=== PATIENT | female | born 1970 | race African-American/Black ===

== ENCOUNTER 2016-09-06 10:25 | Emergency (ER) | payer OTHER ==
[~2016-09-06 10:25] MED LIST: CITALOPRAM HBR20 MG PO; CYCLOBENZAPRINE10 M3 PO; CYMBALTA 20 MG20 MG PO; CYMBALTA 30 MG30 MG PO; CYMBALTA60 MG PO; FLEXERIL10 MG PO; GABAPENTIN300 M2 PO; HYDROCODONE/ACE1 TA1 PO; MACROBID100 MG PO; MOBIC15 MG PO; MOTRIN 600 MG600 MG PO; MOTRIN800 MG PO; NAPROXEN500 MG PO; NEURONTIN300 MG PO; NEXIUM 40MG40 MG PO; PANTOPRAZOLE SO40 MG PO; PERCOCET 325 MG1 TA2 PO; PERCOCET 325 MG1 TAB PO; TRAZODONE HCL100 M1 PO; VICODIN 300 MG-1 TAB PO; ZOFRAN ODT4 MG PO
[2016-09-06 10:28] VITALS: BP 105/72
--- NOTE | 2016-09-06 10:40 | ED HAND/WRIST INJURY COMPLAINT ---
History of Present Illness General Chief Complaint: Hand or Wrist Injury Stated Complaint: L WRIST INJURY Source: patient, old records Exam Limitations: no limitations Vital Signs & Intake/Output Vital Signs & Intake/Output Vital Signs Date Time Temp Pulse Resp B/P B/P Pulse O2 O2 Flow FiO2 Mean Ox Delivery Rate 09/06 1029 97.9 09/06 1028 97.9 115 16 105/72 97 Room Air Allergies Coded Allergies: NO KNOWN ALLERGIES (09/06/16) Reconcile Medications Citalopram Hydrobromide (Citalopram HBr) 20 MG TABLET 1 TAB PO DAILY MENTAL HEALTH (Reported) DULOXETINE HCL (Cymbalta) 60 MG CAPSULE.DR 1 CAP PO DAILY MOOD Duloxetine Hydrochloride (Cymbalta) 20 MG CAPSULE.DR 1 CAP PO BID ANXIETY Gabapentin 300 MG CAPSULE 1 CAP PO TID SEIZURES (Reported) Pantoprazole Sodium 40 MG TABLET.DR 1 TAB PO DAILY GERD (Reported) Trazodone HCl 100 MG TABLET 2 TAB PO QPM SLEEP (Reported) Triage Note: PT TO TRIAGE S/P FALLING LAST NIGHT AND INJURED LT WRIST. STATES SHE WAS DRINKING LAST NIGHT WHEN IT OCCURED. AREA IS WRAPPED FROM HOME, NOTED SWELLING TO AREA. Triage Nurses Notes Reviewed? yes Occurred: yesterday Duration: hour(s):, constant, continues in ED Timing: recent history Injury Environment: street Severity: severe Pain/Injury Location: Left: Wrist. Context: fall Method of Injury: fall Modifying Factors: Improves With: immobilization. Worsens With: jarring, movement. Associated Symptoms: swelling, GCS 15 since, stiffness LMP (ages 10-50): unknown : No Patient currently breastfeeds: No HPI: Evening prior to admission patient admits to alcohol abuse and fell. She complains of left wrist pain and range of motion swelling worse with movement severe constant nonradiating. She denies other injury fever chills nausea vomiting diarrhea abdominal pain chest pain shortness of breath headache dysuria rash bleeding. She is right-hand dominant Past History Travel History Traveled to [place] past 21 day No Medical History Any Pertinent Medical History? see below for history Neurological: NONE EENT: NONE Cardiovascular: "SOMETHING WITH MY HEART" Respiratory: NONE Gastrointestinal: GERD Hepatic: NONE Renal: NONE Musculoskeletal: SPINAL STENOSIS Psychiatric: NONE Endocrine: NONE Blood Disorders: NONE Cancer(s): NONE CEILING INSTALLER/Reproductive: NONE Tetanus Vaccine: 05/10/11 Surgical History Surgical History: tubal ligation Psychosocial History What is your primary language Cameroonian Tobacco Use: Never used Family History Hx Contributory? No Review of Systems Review of Systems Constitutional: Reports: no symptoms. EENTM: Reports: no symptoms. Respiratory: Reports: no symptoms. Cardiovascular: Reports: no symptoms. GI: Reports: no symptoms. Genitourinary: Reports: no symptoms. Musculoskeletal: Reports: see HPI, joint pain, joint swelling. Skin: Reports: no symptoms. Neurological/Psychological: Reports: no symptoms. Hematologic/Endocrine: Reports: no symptoms. Immunologic/Allergic: Reports: no symptoms. All Other Systems: Reviewed and Negative Physical Exam Physical Exam General Appearance: well developed/nourished, alert, awake, anxious, moderate distress Head: atraumatic, normal appearance Eyes: Bilateral: normal appearance, PERRL, EOMI. Ears, Nose, Throat: normal pharynx, normal ENT inspection, hearing grossly normal Neck: normal inspection, supple, full range of motion, no midline tenderness Cardiovascular/Respiratory: normal breath sounds, normal peripheral pulses, regular rate/rhythm, no respiratory distress Back: normal inspection, normal range of motion, no vertebral tenderness Shoulder Left: normal range of motion, normal inspection Shoulder Right: normal range of motion, normal inspection Elbow Left: normal range of motion, normal inspection Elbow Right: normal range of motion, normal inspection Forearm Left: normal range of motion, normal inspection Forearm Right: normal range of motion, normal inspection Wrist Left: swelling, tenderness, bone tenderness, evidence of injury, pain, soft tissue tenderness, limited range of motion Wrist Right: normal range of motion, normal inspection Hand Left: normal range of motion, swelling Hand Right: normal inspection, normal range of motion Reflexes: 2+: bicep (R), bicep (L). Neurologic/Tendon: normal sensation, normal motor functions, normal tendon functions, responds to pain Skin: intact, normal color, warm/dry Lymphatic: no anterior cervical sigrid Progress Differential Diagnosis: dislocation, fracture, sprain Plan of Care: Orders Procedure Date/time Status Durable Medical Equipment 09/06 1134 Active Diagnostic Imaging: Viewed by Me: Radiology Read. Discussed w/RAD: Radiology Read. Radiology Impression: Distal radial and ulnar fractures as described. Departure Departure Time of Disposition: 1133 Disposition: HOME OR SELF CARE Condition: Stable Clinical Impression Primary Impression: Wrist fracture, left Qualifiers: Encounter type: initial encounter Fracture type: closed Qualified Code: S62.102A - Fracture of unspecified carpal bone, left wrist, initial encounter for closed fracture Referrals: DIANE MARY APRN (PCP/Family) MIKAELA POMPA MD Call for orthopedic follow up Departure Forms: Customer Survey General Discharge Information Prescriptions: Current Visit Scripts Oxycodone HCl/Acetaminophen (Percocet 5-325 MG Tablet) 1-2 TAB PO Q6P PRN severe pain #20 TAB Procedures Splinting Location: left wrist Manual Alignment Performed: No Hand-Made Type: orthoglass Splint: sugar-tong Splint Applied By: splint applied by me Pre-Proc Neuro Vasc Exam: normal Post-Proc Neuro Vasc Exam: normal
--- NOTE | 2016-09-06 11:12 | RADIOLOGY REPORT ---
EXAMINATION: XR WRIST, LEFT CLINICAL INFORMATION: Fall with left wrist pain and swelling. COMPARISON: August 26, 2012 TECHNIQUE: AP, lateral, navicula, and oblique views of the left wrist. FINDINGS: There is a comminuted and probably intra-articular fracture of the distal left radius with what appears to be neutral angulation of the radiocarpal joint without definite dorsal angulation identified. There is approximately 3 mm of lateral and dorsal displacement of the major distal fracture fragment. No dislocation is evident. Ulnar styloid fracture present. IMPRESSION: Distal radial and ulnar fractures as described.
[2016-09-06] MEDS ORDERED: PERCOCET 5-3251 EACH PO (11:40)
[2016-09-14] MEDS ORDERED: CYCLOBENZAPRINE10 M1 PO (11:00)
== END 2016-09-06 11:45 ==
LOC: ERH 10:25
DX: S52.502A Unspecified fracture of the lower end of left radius, initial encounter for closed fracture (principal); S52.602A Unspecified fracture of lower end of left ulna, initial encounter for closed fracture; W19.XXXA Unspecified fall, initial encounter; Y92.9 Unspecified place or not applicable; Y93.9 Activity, unspecified
CPT/HCPCS: 73110-LT

== ENCOUNTER → 2016-09-16 | Day surgery (SDC) | payer OTHER ==
[~2016-09-16] VITALS: Ht 147.3 cm; Wt 54.4 kg
[~2016-09-16] MED LIST changes: +CYCLOBENZAPRINE10 M1 PO; +PERCOCET 5-3251 EACH PO
[2016-09-16 07:28] LABS: ABSOLUTE BASOPHIL COUNT 0.1 /CUMM (0.0-0.2); ABSOLUTE EOSINOPHIL COUNT 0.1 /CUMM (0.0-0.7); ABSOLUTE GRANULOCYTE CT 2.9 /CUMM (1.4-6.5); ABSOLUTE LYMPH COUNT 1.8 /CUMM (1.2-3.4); ABSOLUTE MONOCYTE COUNT 0.3 /CUMM (0.10-0.60); BASOPHIL % 1.2 % (0.0-2.0); EOSINOPHIL % 1.8 % (0-5); GRANULOCYTE % 55.1 % (42.2-75.2); HEMATOCRIT 33.9 % (37-47); MEAN CORPUSCULAR HGB 25.4 PG (27.0-31.0); MEAN CORPUSCULAR HGB CONC 31.5 G/DL (33.0-37.0); MEAN CORPUSCULAR VOLUME 80.7 FL (81.0-99.0); MEAN PLATELET VOLUME 7.9 FL (7.4-10.4); PLATELET COUNT 493 /CUMM (130-400); RBC DISTRIBUTION WIDTH 18.9 % (11.5-14.5); RED BLOOD CELL CT 4.21 /CUMM (4.20-5.40); WHITE BLOOD CELL COUNT 5.2 /CUMM (4.8-10.8)
--- NOTE | 2016-09-16 09:51 | Operative Report ---
Operative/Inv Procedure Report Surgery Date: 09/16/16 Name of Procedure: Open reduction internal fixation left distal radius fracture with plate and screw fixation. Pre-Operative Diagnosis: Left displaced distal radial metaphyseal fracture. Post-Operative Diagnosis: Same. Estimated Blood Loss: scant Surgeon/Enrobing Machine Operator: ALETHA ALMAZAN,MIKAELA /STEW VALLEJO Anesthesia: laryngeal mask airway Monitors: EKG/blood pressure/oxygen saturation IV Fluids: Lactated Ringer's Implants: Accumed Acculoc 2 Left Narrow Distal Radius Plate fixed with combination of locking and non-locking screws. Urine Output: None. Drains: None. Specimens: None. Microbiology: None. Tourniquet: 27 minutes at 250 mmHg. Complications: None known. Condition: Stable. Operative Indication: The patient is a 46-year-old female who sustained a mechanical trip and fall last week resulting in a displaced left distal radial metaphyseal fracture. She was seen initially in the emergency room and then followed up in our office on an outpatient basis. She began treatment with our practices physician's service assistant. A discussion was held about the risks and benefits and expected outcomes of nonoperative management of her fracture versus that of operative intervention. All the patient's questions were answered at length. After discussion of the above the patient did decide that she would like to go with operative repair of her distal radius fracture. I saw the patient today and reviewed the same and the patient did wish to proceed with surgery. Surgical consent was obtained. Operative/Procedure Note Note: The patient was brought to the operating room and placed on the operative supine position. General anesthesia via LMA was induced by the anesthesiologist. A dose of IV antibiotics were given for infection prophylaxis. All bony prominences were well-padded. Bilateral calf compression sleeves were placed on the legs to minimize venous pooling and hopefully cutdown a blood clot formation. A well-padded tourniquet was applied to the proximal portion of the left arm. The mini C-arm was brought in after removal of the patient's sugar tong splint. We did confirm that we could image the wrist adequately with C-arm imaging. The left upper extremity was then prepped and draped in the usual sterile fashion. The patient's skin at the volar wrist was marked for a longitudinal volar approach to the distal radius with the incision placed over the FCR tendon was palpable within the soft tissues. The incision extended from the volar wrist flexion crease distally in a distal to proximal direction for about 6-7 cm more or less. Once the skin was marked the extremity was exsanguinated and the pneumatic tourniquet was inflated to a pressure of 250 monitors mercury. The skin incision was created with a scalpel. After that dissection was with blunt tipped scissors. Hemostasis was achieved with manual pressure and electrocautery. We did identify the volar sheath of the FCR tendon. This was divided longitudinally with a scalpel. This did allow us to translocate the FCR tendon in an ulnar direction to expose the underlying dorsal sheath of the flexor carpi radialis tendon sheath. We divided the dorsal FCR tendon sheath longitudinally in line with the skin incision as well sharply. This allowed us to perform blunt fingertip dissection in the muscular interval to come down to the pronator quadratus. Retractors were placed deep into the wound. The pronator quadratus was then elevated in a radial to ulnar direction taking it down with a periosteal elevator from its radial attachment site and reflecting it in subperiosteal fashion to the ulnar side of the distal radius exposing the distal radial epiphysis and metaphysis and distal shaft. Hohmann retractors were placed laterally keep the soft tissues out of the way. We now had direct visualization of the fracture site. The fracture site was opened and cleaned out of minor bone debris and some blood clot. We did clean off some remaining soft tissue over and about the fracture site. We then manipulated the fracture with a reduction with direct visualization and we achieved what appeared to be from the volar perspective an anatomic reduction of the distal radial fracture segment relative to the proximal fracture segment. We brought the C-arm and we did confirm that this was the case. We next selected an Acumed Acculoc 2 left narrow DVR plate. This was placed down and positioned on the volar aspect of the distal radial shaft and metaphysis and secured with K wires. We did confirm proper positioning and size of the plate and orientation of the plate fluoroscopically. Once we were satisfied with this we secured the plate proximally using a nonlocking cortical screw as a compression screw to suck the plate down to the bone of the distal radial shaft. We next maintained volar wrist flexion and apply direct pressure to the distal aspect of the plate to coapt the plate down to the bone. While maintaining the plate manually reduced to the bone the plate was secured in standard fashion with multiple small locking screws designed for the distal end of the plate. We did confirm proper screw length and trajectory and position fluoroscopically for all screws that were placed. Once we had adequate fixation of the plate distally we further secured the plate to the bone proximally with 2 of the larger locking screws placed into the longitudinal limb of the plate per standard locking screw technique. The original K wires holding the plate in place were removed. We did confirm that we had achieved a very acceptable fracture reduction, alignment , and judaism of length. We did also confirm satisfactory hardware position and fixation to have been achieved. These images were taken and saved for hard copy. Our attention was now directed towards closure. The wound was irrigated multiple times with saline. The tourniquet was deflated. Hemostasis was achieved and accommodation manual pressure and electrocautery. The wound and plate and screws were all irrigated once again. The pronator quadratus was allowed to fall down into its normal approximation this time running over the volar aspect of the distal radial plate. A formal repair of the pronator quadratus was not performed. The soft tissues were then allowed to fall into loose normal approximation position. The soft tissue repair itself consisted of approximation of the superficial subcutaneous Tissues using 3-0 undyed Vicryl placed in interrupted buried fashion. The skin margins with an approximately using a running 3-0 Prolene suture placed in subcuticular fashion. The wound was washed and dried. Mastisol was applied about the wound margins. Steri- Strips were applied to augment the subcutaneous tissue skin repair. The wound was washed and dried once again. Adaptic dressing was placed over the Steri- Strip line. We next applied sterile gauze dressings and multiple fluffed open gauze dressings were additionally applied between the fingers deep into the webspaces with packing of loose gauze into the palm and over the volar wrist and over the dorsal hand and wrist as well. We next wrapped Kerlix gauze wrap to hold the gauze dressings in place. We next wrapped the extremity from the distal palmar crease distally to the proximal forearm proximally and then we applied a fiberglass short arm fiberglass splint which was secured with Rayo bandages to provide compression to the wound and hold the dressings and splints in place. The left upper extremity was placed into a Kilo pillow for elevation. The patient was awakened from general anesthesia. At this point she underwent administration of a left-sided regional scalene block. After that she was transferred to the stretcher and brought to the recovery room in stable condition having tolerated the procedure well.
== END ==
LOC: STS 04:44
PROVIDERS: Orthopaedic Surgery
DX: S52.552A Other extraarticular fracture of lower end of left radius, initial encounter for closed fracture (principal); W19.XXXA Unspecified fall, initial encounter; F17.200 Nicotine dependence, unspecified, uncomplicated
CPT/HCPCS: C1713; J0131; J0690; J1885; J2250